=== PATIENT | male | born 1990 | race Caucasian/White ===

== ENCOUNTER 2017-08-14 00:22 | Emergency (ER) | payer OTHER ==
[~2017-08-14] VITALS: Ht 200.7 cm; Wt 109.0 kg
[2017-08-14] MEDS ORDERED: ASPIRIN 81MG TABLET PO STA (01:55)
[2017-08-14 02:22] LABS: BASOPHILS % 0.9 % (0.0-2.0); EOSINOPHILS % 2.1 % (0.0-5.0); HEMATOCRIT. 45.7 % (42.0-52.0); HEMOGLOBIN. 15.8 g/dL (14.0-18.0); LYMPHOCYTES % 38.9 % (20.0-50.0); MEAN CORPUSCULAR HEMOGLOBIN 29.5 pg (28.0-32.0); MEAN CORPUSCULAR VOLUME 85.5 fL (80.0-94.0); MEAN PLATELET VOLUME 7.9 fl (7.4-10.4); MONOCYTES % 9.8 % (2.0-8.0); NEUTROPHILS % 48.3 % (40.0-76.0); PLATELET 197 x1000/uL (130-400); RED BLOOD CELL COUNT 5.34 mill/uL (4.7-6.1); RED CELL DISTRIBUTION WIDTH 13.6 % (11.6-14.6)
[2017-08-14 02:32] LABS: D-DIMER < 0.19 mg/L FEU (<0.50); INR 1.2; PARTIAL THROMBOPLASTIN TIME 27.3 sec (23.4-31.0)
[2017-08-14 02:46] LABS: CARBON DIOXIDE 29 mEq/L (21-32); CHLORIDE 106 mEq/L (98-107); TROPONIN I < 0.02 ng/mL (0.00-0.04)
[2017-08-14 03:11] VITALS: BP 138/99
== END 2017-08-14 04:41 | disposition left against medical advice (07) ==
LOC: ER 00:22 → CANBEDREQ 06:09
DX: R07.9 Chest pain, unspecified (principal); I51.7 Cardiomegaly; Z95.2 Presence of prosthetic heart valve; Z79.82 Long term (current) use of aspirin
CPT/HCPCS: 36415; 71010; 73630; 80053; 83880; 84484; 85025; 85379; 85610; 85730; 93005; 93970; 99285; Z7610